=== PATIENT | female | born 1960 | race Caucasian/White ===

== ENCOUNTER 2017-04-07 06:09 | Day surgery (SDC) | payer BC ==
[~2017-04-07 06:09] MED LIST: ACETAMINOPHEN 1,000 MG/100 ML BTL IV ONE; CLINDAMYCIN 600MG/50ML PREMIX 600 MG/50 ML BAG IVPB ONE; FAMOTIDINE 20MG TABLET PO ONE; METOCLOPRAMIDE 10 MG TABLET PO ONE
[2017-04-07] MEDS ORDERED: LIDOCAINE 1% W/EPI 1:200,000 MPF 30ML SQ ONE (06:10)
[2017-04-07] MEDS ORDERED: BUPIVACAINE 0.75% W/EPI MPF 30ML VIAL IVP ONE (06:10)
[2017-04-07] MEDS ORDERED: LIDOCAINE 2% MDV (20MG/ML) 20ML VIAL IV ONE (06:10)
[2017-04-07] MEDS ORDERED: HYDROMORPHONE HCL 2 MG/ML VIAL IV ONE ×2 (06:10)
[2017-04-07] MEDS ORDERED: METOCLOPRAMIDE HCL 10 MG/2 ML VIAL IVP ONE (06:10)
[2017-04-07] MEDS ORDERED: GLYCOPYRROLATE 0.2 MG/ML ML IV ONE (06:10)
[2017-04-07] MEDS ORDERED: DESFLURANE 240 ML BTL INH ONE (06:10)
[2017-04-07] MEDS ORDERED: NEOSTIGMINE 1 MG/1 ML,10ML VIAL IV ONE (06:10)
[2017-04-07] MEDS ORDERED: PROPOFOL 10 MG/ML VIAL IV ONE (06:10)
[2017-04-07] MEDS ORDERED: MIDAZOLAM HCL 2MG/2ML VIAL IV ONE (06:10)
[2017-04-07] MEDS ORDERED: ONDANSETRON HCL IV 4 MG/2 ML VIAL IVP ONE (06:10)
[2017-04-07] MEDS ORDERED: ROCURONIUM BROMIDE 50MG/5ML VIAL IV ONE (06:10)
[2017-04-07 06:14] LABS: BASO % 0.4 % (0-6); EOS % 3.1 % (0-6); GRAN % 66.2 % (47-80); HEMATOCRIT 38.9 % (35.0-47.0); HEMOGLOBIN 12.5 gm/dl (11.6-16.0); LYMPH % 22.4 % (16-45); MEAN CELL VOLUME 93.1 fl (81-97); MEAN CORPUSCULAR HEMOGLOBIN 29.9 pg (27-33); MEAN CORPUSCULAR HGB CONC 32.1 g/dl (32-36); MEAN PLATELET VOLUME 9.1 fl (7.4-10.4); MONO % 7.9 % (0-9); PLATELET COUNT 292 K/uL (130-400); RED BLOOD COUNT 4.18 M/uL (3.80-5.40); RED CELL DISTRIBUTION WIDTH 14.3 % (11.5-14.5)
[2017-04-07 06:30] LABS: BLOOD UREA NITROGEN 19 mg/dL (6-20); CREATININE 0.7 mg/dL (0.5-0.9); EST GLOMERULAR FILTRATION RATE > 60 mL/min; GLUCOSE,RANDOM 137 mg/dL (74-109)
[2017-04-07] MEDS ORDERED: DIAZEPAM 5 MG TABLET PO PRN (10:47)
[2017-04-07] MEDS: RINGERS SOLUTION,LACTATED 1,000 ML IV SCH ×2 (10:47→19:12)
[2017-04-07] MEDS ORDERED: ONDANSETRON HCL IV 4 MG/2 ML VIAL IVP PRN (10:47)
[2017-04-07] MEDS ORDERED: MORPHINE SULFATE 5 MG/ML PFS IVP PRN ×3 (10:47)
[2017-04-07] MEDS ORDERED: DIAZEPAM 5MG/ML **10ML VIAL IVP PRN (10:49)
[2017-04-07] MEDS: MECLIZINE 25 MG TABLET PO ONE ×2 (13:02→13:14)
[2017-04-07] MEDS ORDERED: HYDROCODONE/APAP 5/325MG TABLET PO PRN (13:12)
[2017-04-07] MEDS: HYDROCODONE/APAP 5/325MG TABLET PO PRN ×4 (13:18→23:23)
--- NOTE | 2017-04-07 14:30 | Operative Note ---
DATE OF SURGERY: 04/07/2017 PREOPERATIVE DIAGNOSES: 1. Chronic panniculitis. 2. Chronic intertrigo. POSTOPERATIVE DIAGNOSES: 1. Chronic panniculitis. 2. Chronic intertrigo. OPERATION: [id number] abdominoplasty with plication. Surgeon: Gino Dunlap MD Anesthesia: General. Estimated Blood Loss: 150 mL DRAINS: 15 round Todd. SPECIMENS: 5300 grams of total tissue. PROCEDURE: The patient was interviewed preoperatively. The operative plan was reviewed. She was marked in a standing position. Questions were answered. She was then taken to the operating room with PAS stockings. After induction of uncomplicated general anesthesia, all pressure points were well padded, protected. We prepped and draped in the usual sterile manner. We circumscribed the umbilicus with a 15-blade, left it on a well-vascularized stalk. We then incised along the inferior predetermined border down through dermis sharply and then used cautery and suture ligation for hemostasis. We took dissection down to fascia. She had abdominal operation in the past and there was a lot of scar plane. There were some residual infraumbilical hernias. We did a suprafascial dissection around the umbilicus to the xiphoid and costal margins. We left a layer of subcu lymphatics on the fascia to help reduce the incidence of seroma. We then used a loop #1 PDS and plicated from the xiphoid to the pubic tubercle. It should be noted that the small hernias that were encountered were imbricated within the plication. After completion of the plication, we placed subfascial Marcaine. We then sat her up about 45 degrees and proceeded with skin resection in both the transverse and vertical limb. We contoured this several times to get it as snug as possible but not too tight to give her as flat and symmetrical a contour as possible. We then placed a 15 round Дмитрий-Hernandez drain, secured it with a 3-0 nylon. We then closed temporarily by advancing lateral to medial. We then closed in 2 layers with several interrupted Insorb dissolvable sutures 0.5 mm apart and then a running 3-0 Monocryl. The umbilicus was marked in the midline. A small heart-shaped ellipse was brought out in the midline and as expected, the umbilicus was directly beneath and we secured it with Monocryl. Sterile non-compressive dressings were applied. She tolerated the procedure well without complication. SERENA
[2017-04-07] MEDS ORDERED: RIVAROXABAN 20 MG TABLET PO SCH (17:30)
[2017-04-07] MEDS: PATIENT OWN MED: METFORMIN 500 MG PO SCH ×2 (18:49→21:14)
[2017-04-07] MEDS ORDERED: LORATADINE 10 MG TABLET PO ONE (20:51)
[2017-04-08] MEDS: RINGERS SOLUTION,LACTATED 1,000 ML IV SCH (02:20)
[2017-04-08] MEDS: HYDROCODONE/APAP 5/325MG TABLET PO PRN ×3 (02:28→09:15)
[2017-04-08] MEDS: PATIENT OWN MED: METFORMIN 500 MG PO SCH (09:13)
[2017-04-08] MEDS ORDERED: PATIENT OWN MED: DULOXETINE 30 MG PO SCH (10:00)
[2017-04-08] MEDS ORDERED: ENOXAPARIN 40 MG/0.4 ML SYR SQ SCH (10:00)
[2017-04-08] MEDS ORDERED: ALPRAZOLAM 0.25 MG PO SCH (10:00)
== END 2017-04-08 11:00 | disposition home or self-care (01) ==
LOC: SUR 06:09 → MEDSURG 12:04 → SUR 04-08 11:00
PROVIDERS: ATTEND Plastic Surgery
DX: E65 Localized adiposity (principal); Z98.84 Bariatric surgery status; Z98.890 Other specified postprocedural states; E11.9 Type 2 diabetes mellitus without complications; Z79.84 Long term (current) use of oral hypoglycemic drugs; L30.4 Erythema intertrigo
CPT/HCPCS: 15830; 15847; 00802; 85025; 80048; 36416; 82948; J3490 ×2; J2405; J1170; J1650; J2710; J2765; J7120